=== PATIENT | male | born 1955 | race Caucasian/White ===

== ENCOUNTER 2017-06-20 22:44 | Observation (INO) | payer OTHER, BC ==
[~2017-06-20] VITALS: Ht 172.7 cm; Wt 82.0 kg
[2017-06-20 22:45] VITALS: O2SAT 97
[2017-06-20] MEDS ORDERED: ONDANSETRON HCL 4 MG/2 ML VIAL ONE ×2 (22:54)
--- NOTE | 2017-06-20 23:00 | RADRPT ---
EXAM DATE/TIME: 06/20/2017 22:47 [facility] COMPARISON: No previous studies available for comparison. INDICATIONS : [place] [facility] [place] H[place]ORY : None. SURGICAL HISTORY : None. ENCOUNTER: Initial ACUITY: 1 day PAIN SCORE: Non-responsive. LOCATION: Bilateral chest FINDINGS: Frontal chest is performed on a backboard. The lungs are symmetrically aerated and grossly clear. The re is no definite evidence of hemothorax or pneumothorax. Cardiomediastinal contours are satisfactory for technique and projection. The right shoulder has an abnormal appearance which may be post trauma tic with an abnormal contour of the inferior glenoid an unusual configuration of the humeral head, ho wever not necessarily acute. There does appear to be healed right clavicle fracture. CONCLUSION: Abnormal appearance of the right clavicle and shoulder. No acute cardiopulmonary disease. Dillan Patel MD on June 20, 2017 at 22:55 Board Certified Radiologist. This report was verified electronically.
--- NOTE | 2017-06-20 23:00 | RADRPT ---
EXAM DATE/TIME: 06/20/2017 22:47 [facility] COMPARISON: No previous studies available for comparison. INDICATIONS : [place] [facility] [place] H[place]ORY : None. SURGICAL HISTORY : None. ENCOUNTER: Initial ACUITY: 1 day PAIN SCORE: Non-responsive. LOCATION: Bilateral chest FINDINGS: Frontal chest is performed on a backboard. The lungs are symmetrically aerated and grossly clear. The re is no definite evidence of hemothorax or pneumothorax. Cardiomediastinal contours are satisfactory for technique and projection. The right shoulder has an abnormal appearance which may be post trauma tic with an abnormal contour of the inferior glenoid an unusual configuration of the humeral head, ho wever not necessarily acute. There does appear to be healed right clavicle fracture. CONCLUSION: Abnormal appearance of the right clavicle and shoulder. No acute cardiopulmonary disease. Dillan Patel MD on June 20, 2017 at 22:55 Board Certified Radiologist. This report was verified electronically.
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
[2017-06-20 23:03] LABS: BASOPHIL # 0.1 TH/MM3 (0-0.2); BASOPHIL % 0.8 % (0.0-2.0); EOSINOPHIL # 0.2 TH/MM3 (0-0.4); EOSINOPHIL % 1.8 % (0.0-4.0); HEMATOCRIT 42.1 % (39.0-51.0); HEMOGLOBIN 14.7 GM/DL (13.0-17.0); LYMPH % 29.9 % (9.0-44.0); MEAN CELL VOLUME 93.1 FL (80.0-100.0); MEAN CORPUSCULAR HEMOGLOBIN 32.5 PG (27.0-34.0); MEAN CORPUSCULAR HGB CONC 34.9 % (32.0-36.0); MEAN PLATELET VOLUME 8.4 FL (7.0-11.0); MONO % 7.2 % (0.0-8.0); MONOCYTE # 0.7 TH/MM3 (0-0.9); NEUT % 60.3 % (16.0-70.0); PLATELET COUNT 277 TH/MM3 (150-450); RED BLOOD COUNT 4.52 MIL/MM3 (4.50-5.90); RED CELL DISTRIBUTION WIDTH 12.7 % (11.6-17.2)
[2017-06-20 23:12] LABS: INTERNATIONAL NORMALIZED RATIO 0.9 RATIO; PROTHROMBIN TIME - PATIENT 10.4 SEC (9.8-11.6)
[2017-06-20] MEDS ORDERED: IOHEXOL 350 MG/ML 10 ML VIAL (for RAD DIAG) IVCONTRAST ONE ×2 (23:12)
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
[2017-06-20 23:48] VITALS: BP 137/68; PULSE 58; RESP 20; TEMP 98.7; O2SAT 97
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
[2017-06-21] MEDS ORDERED: MORPHINE SULFATE 2 MG/ML INJ ONE ×2 (00:40)
[2017-06-21] MEDS ORDERED: ONDANSETRON HCL 4 MG/2 ML VIAL ONE ×2 (00:40)
[2017-06-21] MEDS ORDERED: MORPHINE SULFATE 4 MG/ML INJ IV PUSH ONE ×2 (00:45)
[2017-06-21] MEDS ORDERED: ONDANSETRON HCL 4 MG/2 ML VIAL IV ONE ×2 (00:45)
[2017-06-21 00:54] VITALS: BP 124/67; PULSE 64; RESP 20; O2SAT 96
--- NOTE | 2017-06-21 01:37 | PD ---
Physical Exam Date Seen by Provider: Jun 21, 2017 Time Seen by Provider: 01:35 Narrative For full history and physical examination please see previous provider's notes. I was asked to repair laceration to patient's scalp. Data Data Last Documented VS Vital Signs Date Time Temp Pulse Resp B/P (MAP) Pulse Ox O2 Delivery O2 Flow Rate FiO2 06/21/17 00:54 64 20 124/67 (86) 96 Room Air 06/20/17 23:48 98.7 06/20/17 22:45 4.00 Orders Orders I-Stat Profile (06/20/17 22:47) I-Stat Creatinine (06/20/17 22:47) Complete Blood Count With Diff (06/20/17 22:47) Prothrombin Time / Inr (Pt) (06/20/17 22:47) Act Partial Throm Time (Ptt) (06/20/17 22:47) Type And Screen (06/20/17 22:47) Fibrinogen (06/20/17 22:47) Alcohol (Ethanol) (06/20/17 22:47) Chest, Single Ap (06/20/17 22:47) Ct Brain W/O Iv Contrast(Rout) (06/20/17 22:47) Ct Cerv Spine W/O Contrast (06/20/17 22:47) Ct Abd/Pel W Iv Contrast(Rout) (06/20/17 22:47) Ct Thorax/ Chest W Iv Contrast (06/20/17 22:47) Iv Access Insert/Monitor (06/20/17 22:47) Ecg Monitoring (06/20/17 22:47) Oximetry (06/20/17 22:47) Oxygen Administration (06/20/17 22:47) Ondansetron Inj (Zofran Inj) (06/20/17 22:54) Iohexol 350 Inj (Omnipaque 350 Inj) (06/20/17 23:12) Ondansetron Inj (Zofran Inj) (06/21/17 00:40) Morphine Inj (Morphine Inj) (06/21/17 00:40) Ondansetron Inj (Zofran Inj) (06/21/17 00:45) Morphine Inj (Morphine Inj) (06/21/17 00:45) Labs Laboratory Tests Test 06/20/17 22:47 White Blood Count 10.0 TH/MM3 Red Blood Count 4.52 MIL/MM3 Hemoglobin 14.7 GM/DL Bedside Hemoglobin 14.6 G/DL Hematocrit 42.1 % Bedside Hematocrit 43.0 % Mean Corpuscular Volume 93.1 FL Mean Corpuscular Hemoglobin 32.5 PG Mean Corpuscular Hemoglobin Concent 34.9 % Red Cell Distribution Width 12.7 % Platelet Count 277 TH/MM3 Mean Platelet Volume 8.4 FL Neutrophils (%) (Auto) 60.3 % Lymphocytes (%) (Auto) 29.9 % Monocytes (%) (Auto) 7.2 % Eosinophils (%) (Auto) 1.8 % Basophils (%) (Auto) 0.8 % Neutrophils # (Auto) 6.0 TH/MM3 Lymphocytes # (Auto) 3.0 TH/MM3 Monocytes # (Auto) 0.7 TH/MM3 Eosinophils # (Auto) 0.2 TH/MM3 Basophils # (Auto) 0.1 TH/MM3 CBC Comment DIFF FINAL Differential Comment Prothrombin Time 10.4 SEC Prothromb Time International Ratio 0.9 RATIO Activated Partial Thromboplast Time 21.9 SEC Fibrinogen 227 mg/dL Bedside Sodium 144 MMOL/L Bedside Potassium 3.6 MMOL/L Bedside Chloride 103 MMOL/L Bedside Blood Urea Nitrogen 11 MG/DL Bedside Creatinine 1.1 MG/DL Bedside Glucose 89 MG/DL Ethyl Alcohol Level 218 MG/DL [facility] Medical Record Reviewed: Yes Supervised Visit with YAN: Yes Procedures Procedure Narrative LACERATION LOCATION: Mid anterior scalp LENGTH: 3 inches NUMBER OF STITCHES/SHELLEY: 3 internal stitches, 17 external stitches and 3 shelley REPAIR: The area of the laceration was prepped with Betadine and sterilely draped. The laceration was infiltrated with 1% lidocaine with epinephrine. The wound was copiously irrigated and explored without evidence of foreign body, tendon injury or neurovascular injury. The wound was closed using 4-0 Ethilon. This was a 2 layer repair. A sterile dressing was applied. The patient was advised to keep the dressing clean and dry. Patient tolerated the procedure well. Gerri Brock PERFECT BIND MACHINE OPERATOR Jun 21, 2017 01:37
[2017-06-21 04:26] VITALS: BP 131/71; PULSE 72; RESP 22; TEMP 98.1; O2SAT 96
[2017-06-21] MEDS ORDERED: ACETAMINOPHEN 325 MG TAB PO PRN ×2 (05:15)
[2017-06-21] MEDS ORDERED: oxyCODONE/ACETAMINOPHEN 5 MG/325 MG TAB PO PRN ×2 (07:30)
[2017-06-21] MEDS ORDERED: ONDANSETRON HCL 4 MG/2 ML VIAL IV PUSH PRN ×2 (07:30)
[2017-06-21] MEDS ORDERED: oxyCODONE/ACETAMINOPHEN 10 MG/325 MG TAB PO PRN ×2 (07:30)
[2017-06-21] MEDS ORDERED: ENALAPRILAT 1.25 MG/ML VIAL IV PUSH PRN ×2 (07:30)
[2017-06-21] MEDS ORDERED: SODIUM CHLORIDE 0.9% FLUSH 10 ML FLUSH IV FLUSH PRN ×2 (07:30)
[2017-06-21] MEDS ORDERED: MORPHINE SULFATE 4 MG/ML INJ IV PUSH PRN ×2 (07:30)
[2017-06-21 08:00] VITALS: BP 133/70; PULSE 74; RESP 18; TEMP 98.8; O2SAT 95
[2017-06-21] MEDS ORDERED: THIAMINE HCL 100 MG TAB PO SCH ×2 (09:00)
[2017-06-21] MEDS ORDERED: MULTIVITAMIN TAB PO SCH ×2 (09:00)
[2017-06-21] MEDS ORDERED: FOLIC ACID 1 MG TAB PO SCH ×2 (09:00)
[2017-06-21] MEDS ORDERED: BACITRACIN TOP OINT 15 GM TUBE TOP SCH ×2 (09:00)
[2017-06-21] MEDS ORDERED: LIDOCAINE HCL 5% PATCH T-DERMAL SCH ×2 (09:00)
[2017-06-21] MEDS ORDERED: REMOVE OLD LIDOCAINE PATCH T-DERMAL SCH ×2 (09:00)
[2017-06-21] MEDS: METHOCARBAMOL 500 MG TAB PO SCH ×4 (09:03→17:02)
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
[2017-06-21 11:30] VITALS: PULSE 63
[2017-06-21] MEDS ORDERED: ACETAMINOPHEN/HYDROcodone 325 MG/10 MG TAB PO PRN ×2 (11:30)
[2017-06-21] MEDS ORDERED: ACETAMINOPHEN/HYDROcodone 325 MG/5 MG TAB PO PRN ×2 (11:30)
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
[2017-06-21] MEDS ORDERED: HYDR-3516 PO ×2 (15:33)
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
[2017-06-21 16:08] VITALS: BP 134/69; PULSE 58; RESP 20; TEMP 98.3; O2SAT 92
== END 2017-06-21 18:26 | disposition home or self-care (01) ==
LOC: NEPI 22:44 → EDBD 06-21 02:49 → NEDA 06-21 02:49 → NEPHCDU 06-21 04:24
PROVIDERS: ADMIT Surgery; ATTEND Surgery
DX: S06.0X9A Concussion with loss of consciousness of unspecified duration, initial encounter (principal); R40.2412 Glasgow coma scale score 13-15, at arrival to emergency department; S01.01XA Laceration without foreign body of scalp, initial encounter; S27.321A Contusion of lung, unilateral, initial encounter; S22.42XA Multiple fractures of ribs, left side, initial encounter for closed fracture; Y90.7 Blood alcohol level of 200-239 mg/100 ml; F10.129 Alcohol abuse with intoxication, unspecified
CPT/HCPCS: 12032; 70450; 71010; 71260; 72125; 73030; 74177; 80307; 82435; 82565; 82947; 84132; 84295; 84520; 85025; 85384; 85610; 85730; 86850; 86900; 86901; 94150; 96374; 96375; 96376; 97161; 99291; G0378; G8987; G8988; J2270; J2405; Q9967; G0390